=== PATIENT | female | born 1990 | race Caucasian/White ===

== ENCOUNTER 2017-05-04 17:52 | Emergency (ER) | payer BC, OTHER ==
[~2017-05-04] VITALS: Ht 157.5 cm; Wt 78.0 kg
[2017-05-04 17:58] VITALS: Ht 157.5 cm; Wt 78.0 kg
[2017-05-04] MEDS ORDERED: KETOROLAC 60 MG INJ IM STA (18:35)
[2017-05-04 18:48] LABS: URINE BLOOD (Dip) POC 2+ (NEGATIVE)
[2017-05-04] MEDS ORDERED: IBUP-1542 PO (19:11)
[2017-05-04] MEDS ORDERED: CEPH-443 PO (19:11)
[2017-05-04] MEDS ORDERED: TRAM50TA2 PO (19:12)
--- NOTE | 2017-05-04 19:15 | ERD ---
ER Documentation Chief Complaint Date/Time DATE: 05/04/17 TIME: 19:13 Chief Complaint BACK PAIN SINCE THIS AM (ISAIAS ZAMORA MD) HPI This 26-year-old female presents with multiple complaints. She woke this morning with low back pain. She has also had right shoulder pain for last few days. She denies any history of trauma. She denies urinary complaints. The pain is in the L4-L5 area. She denies any deficits, bowel or bladder incontinence, fevers, additional complaints. Denies any inciting events or previous back problems. (ISAIAS ZAMORA MD) ROS All systems reviewed and are negative except as per history of present illness. (ISAIAS ZAMORA MD) Medications Home Meds Active Scripts Tramadol HCl (Tramadol HCl) 50 Mg Tablet, 50 MG PO Q4 Y for PAIN, #15 TAB Prov:ISAIAS ZAMORA MD 05/04/17 Cephalexin* (Keflex*) 500 Mg Capsule, 500 MG PO QID for 5 Days, CAP Prov:ISAIAS ZAMORA MD 05/04/17 Ibuprofen* (Motrin*) 600 Mg Tab, 600 MG PO Q6, #20 TAB Prov:ISAIAS ZAMORA MD 05/04/17 Allergies Allergies: Coded Allergies: No Known Allergy (Unverified , 05/04/17) PMhx/Soc Medical and Surgical Hx: pt denies Medical Hx, pt denies Surgical Hx History of Surgery: No (PT DENIES MEDICAL AND SURGICAL HX.) Hx Alcohol Use: No Hx Substance Use: No Hx Tobacco Use: No Smoking Status: Never smoker (ISAIAS ZAMORA MD) Physical Exam Vitals Vital Signs Date Time Temp Pulse Resp B/P Pulse Ox O2 Delivery O2 Flow Rate FiO2 05/04/17 17:58 98.1 70 20 110/69 99 (JENNIFER HECK PA-C) Physical Exam Const: [], [id number]. Head: Atraumatic Eyes: Normal Conjunctiva ENT: Normal External Ears, Nose and Mouth. Neck: Full range of motion..~ No meningismus. Resp: Clear to auscultation bilaterally Cardio: Regular rate and rhythm, no murmurs Abd: Soft, non tender, non distended. Normal bowel sounds Skin: No petechiae or rashes Back: No midline or flank tenderness. There is some tenderness in the bilateral L4-5 area without CVA tenderness. There is no midline tenderness or deformities Ext: No cyanosis, or edema. There is some tenderness in the right rotator cuff without evidence of weakness or deficits. Neur: Awake and alert Psych: Normal Mood and Affect (ISAIAS ZAMORA MD) Results 24 hrs Laboratory Tests Test 05/04/17 18:52 Bedside Urine pH (LAB) 5.5 Bedside Urine Protein (LAB) Negative Bedside Urine Glucose (UA) Negative Bedside Urine Ketones (LAB) Negative Bedside Urine Blood 2+ Bedside Urine Nitrite (LAB) Negative Bedside Urine Leukocyte Esterase (L Trace Current Medications Medications (Trade) Dose Ordered Sig/Diego Route PRN Reason Start Time Stop Time Status Last Admin Dose Admin Ketorolac Tromethamine (Toradol) 60 mg ONCE STAT IM 05/04/17 18:35 05/04/17 18:37 DC 05/04/17 18:50 (JENNIFER HECK PA-C) Procedures/MDM X-ray LS-Spine 3V Interpreted by me: Bones: [No fracture] Joints: [No dislocation] Foreign body: [None]. Impression-normal lumbar spine is X-ray right shoulder 3V Interpreted by me: Bones: [No fracture] Joints: [No dislocation] Foreign body: [None]. Impression abnormal right shoulder x-ray Urine shows trace leukocytes and 1+ hemoglobin. HCG is negative. Patient was given Toradol 60 mg IM. Patient appears with low back pain in the area of L4-5, likely musculoskeletal strain. Signs and symptoms do not suggest renal etiology and doubt septic stone or genitourinary causes of back pain. She does have UTI and will treated for this. She has right shoulder pain and signs consistent with rotator cuff tendinitis or strain without evidence of fracture, dislocation deficits. She will treated with ibuprofen, tramadol and Keflex primary care follow-up. Patient is advised to return for fevers, vomiting, new worsening symptoms. The patient was stable with no new complaints during the ER course. Clinically, there is no current evidence to suggest meningitis, sepsis, acute abdomen, pneumonia, acute coronary syndrome, pulmonary embolism, or any other emergent condition appearing to require further evaluation or hospitalization. The patient should certainly return for any new or worsening symptoms per the aftercare instructions. They should otherwise follow-up with her primary care doctor for reevaluation this week. (ISAIAS ZAMORA MD) X-rays of the lumbar back and right shoulder did not show any evidence of acute fracture. Patient was discharged per Dr. Zamora's instructions. She was neurovascular intact and stable for discharge for home (JENNIFER HECK PA-C) Departure Diagnosis: Primary Impression: Shoulder pain Laterality: right Chronicity: acute Qualified Code: M25.511 - Acute pain of right shoulder Additional Impression: Back pain Back pain location: low back pain Chronicity: acute Back pain laterality: right Sciatica presence: without sciatica Qualified Code: M54.5 - Acute right-sided low back pain without sciatica Condition: Stable Patient Instructions: Understanding Urinary Tract Infections (UTIs), Back Exercises, Lumbar, Back Pain (Acute Or Chronic), Shoulder Pain (Uncertain Cause) Additional Instructions: Urine shows signs of infection and we will treat for this although doubt cause of pain. Recommend ice at home and stretching. Likely musculoskeletal pain. Recheck in the ER for fevers, vomiting, new worsening symptoms. Follow-up with primary care doctor this week. ISAIAS ZAMORA MD May 04, 2017 19:15 JENNIFER HECK PA-C May 04, 2017 20:45
--- NOTE | 2017-05-04 20:17 | RADRPT ---
PROCEDURE: XR right shoulder. CLINICAL INDICATION: Pain. TECHNIQUE: 3 views of the right shoulder were performed. COMPARISON: None. FINDINGS: There is normal osseous mineralization and alignment. No acute fracture or osseous lesion is identified. There are normal joints without evidence of arthritis or dislocation. The soft tissues are unremarkable. Question calcified granuloma over the right lung base. IMPRESSION: Unremarkable right shoulder. RPTAT: [facility] Physician Lena Date Time Electronically viewed and signed by Physician Lena on 05/04/2017 20:17 RS/
--- NOTE | 2017-05-04 20:21 | RADRPT ---
PROCEDURE: X-ray lumbar spine CLINICAL INDICATION: Pain in the lumbar spine TECHNIQUE: 3 views of the lumbar spine COMPARISON: None FINDINGS: No acute fracture or dislocation. Soft tissues unremarkable. IMPRESSION: No acute fracture. RPTAT: [facility] Physician Lena Date Time Electronically viewed and signed by Tosha Arzate Physician on 05/04/2017 20:21 RS/
== END 2017-05-04 21:03 | disposition home or self-care (01) ==
LOC: FTE 17:52
DX: M25.511 Pain in right shoulder (principal)
CPT/HCPCS: 72100; 73030; 81003; 96372; 99284; J1885

== ENCOUNTER 2017-05-06 12:05 | Emergency (ER) | payer BC ==
[~2017-05-06] VITALS: Ht 170.2 cm; Wt 60.5 kg
[~2017-05-06 12:05] MED LIST: CEPH-443 PO; IBUP-1542 PO; TRAM50TA2 PO
[2017-05-06 12:08] VITALS: Ht 170.2 cm; Wt 60.5 kg
[2017-05-06] MEDS ORDERED: ONDANSETRON (ODT) 4 MG TAB ODT STA (12:36)
[2017-05-06 12:58] LABS: ADD SCAN DIFF NO
[2017-05-06] MEDS ORDERED: DICYCLOMINE 10 MG CAP PO ONE (13:00)
[2017-05-06 13:03] LABS: BASOPHILS % 0.2 % (0.0-2.0); HEMATOCRIT 36.8 % (37.0-47.0); HEMOGLOBIN 12.4 g/dl (12.0-16.0); LYMPHOCYTES % 9.4 % (15.0-51.0); MEAN CORPUSCULAR HEMOGLOBIN 30.5 pg (29.0-33.0); MEAN CORPUSCULAR HGB CONC 33.7 g/dl (32.0-37.0); MEAN CORPUSCULAR VOLUME 90.4 fl (82.0-101.0); MEAN PLATELET VOLUME 10.2 fl (7.4-10.4); MONOCYTE # 0.2 10^3/ul (0.3-0.9); MONOCYTES % 1.9 % (0.0-11.0); NEUTROPHIL # 9.7 10^3/ul (1.6-7.5); NEUTROPHILS % 88.2 % (39.0-77.0); PLATELET COUNT 247 10^3/UL (140-415); RED BLOOD COUNT 4.07 10^6/ul (4.20-5.40); RED CELL DISTRIBUTION WIDTH 12.6 % (11.5-14.5)
[2017-05-06 13:24] LABS: CREATININE 0.63 mg/dl (0.44-1.00)
[2017-05-06 15:04] LABS: ADD UMIC YES; UR ASCORBIC ACID NEGATIVE (NEGATIVE); UR BILIRUBIN (Dip) NEGATIVE (NEGATIVE); UR BLOOD (Dip) 1+ mg/dL (NEGATIVE); UR CLARITY CLEAR (CLEAR); UR COLOR STRAW (YELLOW); UR GLUCOSE (Dip) NEGATIVE (NEGATIVE); UR KETONES (Dip) NEGATIVE (NEGATIVE); UR LEUKOCYTE ESTERASE (Dip) 2+ Leu/ul (NEGATIVE); UR NITRITE (Dip) NEGATIVE (NEGATIVE); UR RBC 1 /HPF (0-5); UR SPECIFIC GRAVITY (Dip) 1.003 (1.003-1.030); UR SQUAMOUS EPITHELIAL CELL FEW /HPF (FEW); UR TOTAL PROTEIN (Dip) NEGATIVE (NEGATIVE); UR UROBILINOGEN (Dip) NEGATIVE (NEGATIVE)
[2017-05-06 15:08] VITALS: BP 134/75; PULSE 85; RESP 16; TEMP 98.7
[2017-05-06] MEDS ORDERED: ONDA4TAB14 PO (15:43)
[2017-05-06] MEDS ORDERED: CIPR500T4 PO (15:43)
--- NOTE | 2017-05-06 15:47 | ERD ---
ER Documentation Chief Complaint Date/Time DATE: 05/06/17 TIME: 15:44 Chief Complaint EPIGASTRIC PAIN N/V W/ CLEAR EMESIS SINCE 0600 HPI 26-year-old female presents with epigastric abdominal discomfort and nausea and vomiting. She describes nonbloody nonbilious emesis that started this morning. She was seen here 4 days ago for low back pain and myalgia. She had x-rays that were negative. She was diagnosed with potential UTI but states that she does not like to take the Keflex. Patient denies any fevers or chills, no chest pain or shortness of breath. No dysuria urgency or frequency. ROS All systems reviewed and are negative except as per history of present illness. Medications Home Meds Active Scripts Ondansetron (Ondansetron Odt) 4 Mg Tab.rapdis, 4 MG PO Q6H Y for NAUSEA AND/OR VOMITING, #30 TAB Prov:KELECHI HDEZ MD 05/06/17 Ciprofloxacin Hcl* (Ciprofloxacin Hcl*) 500 Mg Tablet, 500 MG PO BID for 3 Days , TAB Prov:KELECHI HDEZ MD 05/06/17 Tramadol HCl (Tramadol HCl) 50 Mg Tablet, 50 MG PO Q4 Y for PAIN, #15 TAB Prov:ISAIAS ZAMORA MD 05/04/17 Cephalexin* (Keflex*) 500 Mg Capsule, 500 MG PO QID for 5 Days, CAP Prov:ISAIAS ZAMORA MD 05/04/17 Ibuprofen* (Motrin*) 600 Mg Tab, 600 MG PO Q6, #20 TAB Prov:ISAIAS ZAMORA MD 05/04/17 Allergies Allergies: Coded Allergies: No Known Allergy (Unverified , 05/04/17) PMhx/Soc History of Surgery: No (PT DENIES MEDICAL AND SURGICAL HX.) Hx Alcohol Use: No Hx Substance Use: No Hx Tobacco Use: No Smoking Status: Never smoker FmHx Family History: No diabetes Physical Exam Vitals Vital Signs Date Time Temp Pulse Resp B/P Pulse Ox O2 Delivery O2 Flow Rate FiO2 05/06/17 15:08 98.7 85 16 134/75 98 Room Air 05/06/17 12:08 98.9 69 16 118/73 98 Physical Exam General: Well developed, well nourished, no acute distress Head: Normocephalic, atraumatic. Eyes: Pupils equally reactive, EOM intact ENT: Moist mucous membranes Neck: Supple, no lymphadenopathy Respiratory: Lungs clear bilaterally, no distress Cardiovascular: RRR, no murmurs, rubs, or gallops Abdominal: Soft, non-tender, non-distended, no peritoneal signs : Deferred MSK: No edema, no unilateral swelling, 5/5 strength Neurologic: Alert and oriented, moving all extremities, normal speech, no focal weakness, no cerebellar signs Skin: No rash Psych: Normal mood Result Diagram: 05/06/17 1250 05/06/17 1250 Results 24 hrs Laboratory Tests Test 05/06/17 12:50 05/06/17 14:20 White Blood Count 11.010^3/ul Red Blood Count 4.0710^6/ul Hemoglobin 12.4g/dl Hematocrit 36.8% Mean Corpuscular Volume 90.4fl Mean Corpuscular Hemoglobin 30.5pg Mean Corpuscular Hemoglobin Concent 33.7g/dl Red Cell Distribution Width 12.6% Platelet Count 62148^3/UL Mean Platelet Volume 10.2fl Neutrophils % 88.2% Lymphocytes % 9.4% Monocytes % 1.9% Eosinophils % 0.0% Basophils % 0.2% Nucleated Red Blood Cells % 0.0/100WBC Neutrophils # 9.710^3/ul Lymphocytes # 1.010^3/ul Monocytes # 0.210^3/ul Eosinophils # 0.010^3/ul Basophils # 0.010^3/ul Nucleated Red Blood Cells # 0.010^3/ul Sodium Level 135mmol/L Potassium Level 4.0mmol/L Chloride Level 102mmol/L Carbon Dioxide Level 26mmol/L Anion Gap 11 Blood Urea Nitrogen 10mg/dl Creatinine 0.63mg/dl Glucose Level 101mg/dl Calcium Level 9.0mg/dl Serum HCG, Qualitative NEGATIVE Urine Color STRAW Urine Clarity CLEAR Urine pH 8.0 Urine Specific [place] 1.003 Urine Ketones NEGATIVEmg/dL Urine Nitrite NEGATIVEmg/dL Urine Bilirubin NEGATIVEmg/dL Urine Urobilinogen NEGATIVEmg/dL Urine Leukocyte Esterase 2+Blanca/ul Urine Microscopic RBC 1/HPF Urine Microscopic WBC 5/HPF Urine Squamous Epithelial Cells FEW/HPF Urine Hemoglobin 1+mg/dL Urine Glucose NEGATIVEmg/dL Urine Total Protein NEGATIVEmg/dl Current Medications Medications (Trade) Dose Ordered Sig/Diego Route PRN Reason Start Time Stop Time Status Last Admin Dose Admin Ondansetron HCl (Zofran Odt) 4 mg ONCE STAT ODT 05/06/17 12:36 05/06/17 12:38 DC 05/06/17 12:45 Dicyclomine HCl (Bentyl) 10 mg ONCE ONCE PO 05/06/17 13:00 05/06/17 13:01 DC 05/06/17 12:45 Procedures/MDM LAB INTERPRETATION: Slight and nonspecific leukocytosis, possible UTI, negative hCG MEDICAL DECISION MAKING: The patient presents with epigastric abdominal discomfort and vomiting that seems to be consistent with likely viral process. She has a negative hCG. She is also is having some lower back pain that seems to be reproducible and musculoskeletal. She had a workup 4 days ago that is negative. No evidence of epidural abscess or hematoma. The patient is afebrile. She has a normal motor exam. This is possibly related to UTI versus viral process. Basic blood work and repeat urinalysis as well as urine culture would be appropriate. ER COURSE: Potential for UTI given leukocyte esterase and 5 WBCs but normal nitrates. Urine culture sent. I will change Keflex to Cipro. The patient was given Zofran and Bentyl here with improved symptoms. The patient will be discharged with Zofran and Cipro with close outpatient follow-up. She is otherwise well- appearing and has not vomited during her ER course. I kept the patient and/or family informed of laboratory and diagnostic imaging results throughout the emergency room course. DISPOSITION PLAN: We discussed follow up with the patient's primary care doctor within 24 to 48 hours as needed. We also discussed return to the emergency room for worsening symptoms or worsening condition. Outpatient referral: [None required] Discharge Medications: Cipro, Zofran Departure Diagnosis: Primary Impression: Nausea and vomiting Vomiting type: unspecified Vomiting Intractability: unspecified Qualified Code: R11.2 - Nausea and vomiting, intractability of vomiting not specified, unspecified vomiting type Additional Impression: Urinary tract infection Urinary tract infection type: acute cystitis Hematuria presence: without hematuria Qualified Code: N30.00 - Acute cystitis without hematuria Condition: Stable Patient Instructions: Nausea and Vomiting-Adult Additional Instructions: Llame al doctor nombrado abajo (Referral Sources) MAANA y vanesa amber THERESA PARA DENTRO DE AMBER SEMANA. Dgale a la secretaria que nosotros le instruimos hacer esta theresa.Avise o llame si arreola condicin se empeora antes de la theresa. KELECHI HDEZ MD May 06, 2017 15:47
== END 2017-05-06 16:05 | disposition home or self-care (01) ==
LOC: FTE 12:05
DX: R11.2 Nausea with vomiting, unspecified (principal); N30.00 Acute cystitis without hematuria
CPT/HCPCS: 36415; 80048; 81001; 84703; 85025; 87086; 99284

== ENCOUNTER 2018-02-15 22:54 | Outpatient (CLI) | END 2018-02-16 02:00 | disposition home or self-care (01) ==